=== PATIENT | male | born 1975 | race African-American/Black ===

== ENCOUNTER 2021-10-24 08:47 | Emergency (ER) | payer OTHER ==
[2021-10-24 10:13] LABS: HBSAg Index 0.22 S/CO (0-0.99); HIV (1/2) Antibody/Antigen Non-Reactive (NonReactive); HIV 1/2 INDEX 0.14 S/CO (<1.00); Hep B Surf Ag Non-Reactive S/CO (NonReactive); Hep C IgG Ab Non-Reactive (NonReactive); Hep C Index 0.05 S/CO (0-0.79)
== END 2021-10-24 08:53 | disposition expired ==
LOC: ERS 08:47
DX: I46.9 Cardiac arrest, cause unspecified (principal)
CPT/HCPCS: 86803; 87340; 87389; 92950